=== PATIENT | female | born 1955 | race Caucasian/White ===

== ENCOUNTER 2017-05-06 15:57 | Emergency (ER) | payer OTHER ==
[~2017-05-06] VITALS: Ht 167.6 cm; Wt 81.6 kg
[~2017-05-06 15:57] MED LIST: DIGO125T; ESTR0.5T PO; LANS30CA16; LEVO25CA2; LOVA20TA2; LOVA40TA2 PO; MEDR2.5T30 PO; NAPR500T3 PO; SYNTHROID
[2017-05-06 16:05] VITALS: BP 160/83
[2017-05-06] MEDS ORDERED: KETOROLAC 30 MG/1 ML ONE (16:24)
[2017-05-06] MEDS ORDERED: HYDROcodone/APAP 5/325 TABLET ONE (16:24)
[2017-05-06] MEDS ORDERED: DIAZEPAM 5 MG TABLET ONE (16:25)
[2017-05-06] MEDS ORDERED: HYDROcodone/APAP 5/325 TABLET PO ONE (16:30)
[2017-05-06] MEDS ORDERED: KETOROLAC 30 MG/1 ML IM ONE (16:30)
[2017-05-06] MEDS ORDERED: DIAZEPAM 5 MG TABLET PO ONE (16:30)
== END 2017-05-06 17:15 | disposition home or self-care (01) ==
LOC: ED 17:09
DX: M75.32 Calcific tendinitis of left shoulder (principal); E03.9 Hypothyroidism, unspecified; I10 Essential (primary) hypertension; K21.9 Gastro-esophageal reflux disease without esophagitis; E78.00 Pure hypercholesterolemia, unspecified
CPT/HCPCS: 71020; 73030; 93005; 96372; 99284; J1885

== ENCOUNTER 2017-09-02 09:47 | Emergency (ER) | payer OTHER ==
[~2017-09-02] VITALS: Ht 167.6 cm; Wt 81.0 kg
[~2017-09-02 09:47] MED LIST changes: -LANS30CA16; +LANS30CA60; -NAPR500T3 PO; +NAPR500T4 PO
[2017-09-02] MEDS ORDERED: SODIUM CHLORIDE FLUSH 10ML SYR IVF ONE (10:00)
[2017-09-02] MEDS ORDERED: SODIUM CHLORIDE 0.9% 1,000ML IVBOLUS ONE (10:00)
[2017-09-02] MEDS ORDERED: ONDANSETRON 2MG/ML, 2ML IVPush ONE (10:00)
[2017-09-02 10:24] LABS: HEMATOCRIT 44.4 % (34.6-47.8); HEMOGLOBIN 15.1 g/dL (11.7-16.4); WHITE BLOOD COUNT 13.2 x10^3/uL (3.4-10)
[2017-09-02 10:35] LABS: ASPARTATE AMINO TRANSFERASE 17 U/L (15-37); BLOOD UREA NITROGEN 19 mg/dL (7-18)
[2017-09-02] MEDS ORDERED: ONDANSETRON 2MG/ML, 2ML ONE (11:40)
[2017-09-02] MEDS ORDERED: SODIUM CHLORIDE 0.9% 1,000 ML IV ONE (11:53)
[2017-09-02] MEDS ORDERED: FAMOTIDINE 20 MG/2 ML IVP ONE (12:00)
[2017-09-02] MEDS ORDERED: METOCLOPRAMIDE 5 MG/ML, 2ML IVPush ONE (12:00)
[2017-09-02] MEDS ORDERED: METOCLOPRAMIDE 5 MG/ML, 2ML ONE (12:08)
[2017-09-02] MEDS ORDERED: FAMOTIDINE 20 MG/2 ML ONE (12:08)
[2017-09-02] MEDS ORDERED: CEFTRIAXONE PMX 1GM/50ML 50 ML IV ONE (14:00)
[2017-09-02] MEDS ORDERED: CEFTRIAXONE PMX 1GM/50ML 50 ML ONE (14:07)
[2017-09-02 16:15] VITALS: BP 120/65
== END 2017-09-02 16:31 | disposition home or self-care (01) ==
LOC: ED 12:46
DX: N30.01 Acute cystitis with hematuria (principal); R11.2 Nausea with vomiting, unspecified; E03.9 Hypothyroidism, unspecified; K21.9 Gastro-esophageal reflux disease without esophagitis; E78.00 Pure hypercholesterolemia, unspecified; I10 Essential (primary) hypertension
CPT/HCPCS: 36415; 71010; 80053; 81001; 83605; 83690; 85025; 87040; 87086; 93005; 96361; 96365; 96375; 99285; J0696; J2405; J2765; J7030; S0028

== ENCOUNTER → 2018-07-29 | Outpatient (CLI) | payer OTHER ==
[~2018-07-29] MED LIST changes: +NAPR-685 PO; -NAPR500T4 PO
== END | disposition home or self-care (01) ==
LOC: CFH 10:08
PROVIDERS: ATTEND Obstetrics & Gynecology Gynecology
DX: Z12.31 Encounter for screening mammogram for malignant neoplasm of breast (principal)
CPT/HCPCS: 77067

== ENCOUNTER → 2019-07-30 | Outpatient (CLI) | payer OTHER | END | disposition home or self-care (01) | LOC: CFH 10:40 | PROVIDERS: ATTEND Obstetrics & Gynecology Gynecology | DX: Z12.31 Encounter for screening mammogram for malignant neoplasm of breast (principal) | CPT/HCPCS: 77067 ==

== ENCOUNTER 2020-07-11 18:19 | Emergency (ER) | payer OTHER ==
[~2020-07-11] VITALS: Ht 165.1 cm; Wt 87.9 kg
[~2020-07-11 18:19] MED LIST changes: -DIGO125T; +DIGO125T85
--- NOTE | 2020-07-11 18:48 | NUR ---
patient arrives with recent right sided nose bleeds over last week some last up to 30 minutes reportedly. had one earlier today, but not at this time. history of htn and high cholesterol.
--- NOTE | 2020-07-11 19:10 | NUR ---
REPORT RECEIVED FROM GAYATRI CARNEY
[2020-07-11 19:42] VITALS: BP 158/87
== END 2020-07-11 20:05 | disposition home or self-care (01) ==
LOC: ED 19:56
DX: R04.0 Epistaxis (principal); I10 Essential (primary) hypertension
CPT/HCPCS: 99281

== ENCOUNTER → 2020-08-02 | Outpatient (CLI) | payer OTHER | END | disposition home or self-care (01) | LOC: CFH 10:29 | PROVIDERS: ATTEND Obstetrics & Gynecology Gynecology | DX: Z12.31 Encounter for screening mammogram for malignant neoplasm of breast (principal) | CPT/HCPCS: 77063; 77067 ==

== ENCOUNTER → 2020-11-03 | Outpatient (CLI) | payer OTHER | END | disposition home or self-care (01) | LOC: CFH 12:01 | PROVIDERS: ATTEND Family Medicine | DX: S33.140A Subluxation of L4/L5 lumbar vertebra, initial encounter (principal); M48.061 Spinal stenosis, lumbar region without neurogenic claudication; M47.816 Spondylosis without myelopathy or radiculopathy, lumbar region; X58.XXXA Exposure to other specified factors, initial encounter; Y93.89 Activity, other specified; Y92.89 Other specified places as the place of occurrence of the external cause; Y99.8 Other external cause status | CPT/HCPCS: 72110 ==

== ENCOUNTER 2020-11-04 16:47 | Emergency (ER) | payer OTHER ==
[~2020-11-04] VITALS: Ht 167.6 cm; Wt 82.0 kg
[2020-11-04 16:49] VITALS: BP 162/81
--- NOTE | 2020-11-04 16:55 | NUR ---
this is a 65 yr old female coming from home bib ems for a bloody nose x 25 minutes with hx of these events. pt attempted to take afrin at home with no relief. pt able to ambulate from entrance with a steady gait. pt in room and nose clamp applied.
--- NOTE | 2020-11-04 17:26 | NUR ---
pt in bed no distress
[2020-11-04] MEDS ORDERED: SILVER NITRATE STICK TP ONE (17:29)
--- NOTE | 2020-11-04 17:39 | NUR ---
at bed side. cauterization of nose. pt tolarated well
== END 2020-11-04 18:46 | disposition home or self-care (01) ==
LOC: ED 18:10
DX: R04.0 Epistaxis (principal); I10 Essential (primary) hypertension
CPT/HCPCS: 30901; 99284

== ENCOUNTER → 2021-01-06 | Outpatient (CLI) | payer OTHER | END | disposition home or self-care (01) | LOC: CFH 11:20 | PROVIDERS: ATTEND Physician Assistant | DX: M79.642 Pain in left hand (principal) ==

== ENCOUNTER 2021-05-07 14:43 | Emergency (ER) | payer MEDICARE ==
[~2021-05-07] VITALS: Ht 167.6 cm; Wt 78.6 kg
[2021-05-07 15:05] VITALS: BP 102/67
--- NOTE | 2021-05-07 15:26 | NUR ---
ERP AND RN IN TO SEE PT. PT WITH MODERATE BACK PAIN WITH ANY MOVEMENT OR LYING FLAT. DRESSING TO MID LOWER BACK REMOVED BY ERP; ROSIBEL INTACT, CLEAN & DRY, NO SWELLING OR S/S OF INFECTION. MODERATE AMOUNT SEROUSANGUINOUS DRAINAGE ON DRESSING. WILL REPLACE DRESSING.
== END 2021-05-07 16:12 | disposition home or self-care (01) ==
LOC: ED 16:00
DX: Z48.01 Encounter for change or removal of surgical wound dressing (principal); M43.19 Spondylolisthesis, multiple sites in spine; I10 Essential (primary) hypertension; K21.9 Gastro-esophageal reflux disease without esophagitis; E03.9 Hypothyroidism, unspecified; E78.00 Pure hypercholesterolemia, unspecified
CPT/HCPCS: 99282